=== PATIENT | male | born 1945 | race Caucasian/White ===

== ENCOUNTER 2017-04-05 08:14 | Emergency (ER) | payer MEDICARE, OTHER ==
--- NOTE | 2017-04-09 07:44 | ER ---
ADMIT: 04/05/2017 RM/LOC: ER [facility] MR#: [id number] [facility] [address] [place], [place] [id number] EJ HENSON [address] [place] [id number] Emergency Room Report SEX: M AGE: 72 : 1945 DATE: 04/05/2017 ADDENDUM: A 72-year-old male with history of coronary artery disease and stents, who comes in with some aching in the left lateral side of his chest. He states this happened when he laid down at night. Last night, had a few episodes of it. At its worse, it was 5/10, but has been chest pain free for many hours now. He feels like it is a little bit better when he sits up, but does not completely resolve with position when this was occurring. He has had no associated nausea, diaphoresis, or shortness of breath with this. He states this feels very different than his anginal chest pain he has had before. His physical exam was unremarkable. His EKG, chest x-ray, CBC, BMP, and cardiac enzymes were all normal. I did discuss the case with Dr. Rivera and plan at this time is to have the patient discharge to home, and he will be set up for a stress test. Follow up with Dr. Rivera. He is already on Plavix and aspirin. He is supposed to continue that, and he is told if he has any other concerning symptoms, he should return to the ER for re-evaluation. DIAGNOSIS: Atypical chest pain. Horace Gutierres MD/ carolann JOB #: [id number] CC: Horace Gutierres MD, Attending Physician
== END 2017-04-05 10:00 | disposition home or self-care (01) ==
LOC: ER 08:14
DX: R07.89 Other chest pain (principal); I10 Essential (primary) hypertension; E78.5 Hyperlipidemia, unspecified; I25.10 Atherosclerotic heart disease of native coronary artery without angina pectoris; Z95.5 Presence of coronary angioplasty implant and graft; Z79.82 Long term (current) use of aspirin; Z79.01 Long term (current) use of anticoagulants; Z79.899 Other long term (current) drug therapy; Z88.2 Allergy status to sulfonamides; Z88.6 Allergy status to analgesic agent; Z88.8 Allergy status to other drugs, medicaments and biological substances